=== PATIENT | male | born 1990 | race Two or more races ===

== ENCOUNTER 2017-09-23 15:19 | Inpatient (IN) | payer MEDICAID, OTHER ==
[~2017-09-23] VITALS: Ht 170.2 cm; Wt 59.4 kg
[2017-09-23] MEDS ORDERED: normal saline 1000ML IV soln IVB ONE (15:50)
[2017-09-23] MEDS ORDERED: ondansetron/PF 4mg/2ml inj IV ONE (16:20)
[2017-09-23] MEDS ORDERED: normal saline 1000ML IV soln IV ONE (16:20)
[2017-09-23 16:21] LABS: BASOPHILS % (AUTO) 0.3 % (0-1); EOSINOPHILS # (AUTO) 0.2 X10'3 (0-0.9); EOSINOPHILS % (AUTO) 1.8 % (0-6); HEMATOCRIT 43.6 % (42.0-52.0); HEMOGLOBIN 15.6 g/dl (14.0-17.9); LYMPHOCYTES # (AUTO) 0.9 X10'3 (1.1-4.8); LYMPHOCYTES % (AUTO) 7.5 % (21-51); MEAN CORPUSCULAR HEMOGLOBIN 30.8 PG (27.0-31.0); MEAN CORPUSCULAR HGB CONC 35.7 % (33.0-36.5); MEAN CORPUSCULAR VOLUME 86.2 FL (78-98); MEAN PLATELET VOLUME 7.6 FL (7.4-10.4); MONOCYTES # (AUTO) 0.7 X10'3 (0-0.9); NEUTROPHILS # (AUTO) 10.6 X10'3 (1.8-7.7); NEUTROPHILS % (AUTO) 84.4 % (42-75); PLATELET COUNT 241 X10'3 (140-440); RED BLOOD COUNT 5.06 X10'6 (4.70-6.10); RED CELL DISTRIBUTION WIDTH 12.2 % (11.5-14.5); WHITE BLOOD COUNT 12.5 X10'3 (4.5-11.0)
[2017-09-23 16:32] LABS: INR 1.1 INR; PARTIAL THROMBOPLASTIN TIME 26 SECONDS (22-32)
[2017-09-23 16:36] LABS: ALANINE AMINOTRANSFERASE 36 U/L (12-78); ALBUMIN/GLOBULIN RATIO 1.5 (1.1-1.5); ALKALINE PHOSPHATASE 54 IU/L (46-116); ANION GAP 14 (8-16); ASPARTATE AMINO TRANSFERASE 25 U/L (10-37); BLOOD UREA NITROGEN 24 MG/DL (7-18); BUN/CREATININE RATIO 11.4 (5.4-32.0); CALCIUM 9.2 MG/DL (8.5-10.1); CHLORIDE 104 MMOL/L (99-107); ETHANOL < 0.010 GM/DL (0.0-0.010); GLUCOSE 98 MG/DL (70-104); POTASSIUM 4.2 MMOL/L (3.5-5.1); SODIUM 139 MMOL/L (135-145); TOTAL PROTEIN 8.3 G/DL (6.4-8.2); eGFR 38 ML/MIN
[2017-09-23 16:37] LABS: ACETAMINOPHEN < 2.0 UG/ML (10-30)
[2017-09-23] MEDS ORDERED: NO HOME MEDS (17:04)
[2017-09-23 17:25] LABS: CLARITY,URINE Clear (Clear); COLOR,URINE Yellow (Yellow); GLUCOSE, URINE Negative (Neg); KETONES,URINE Trace mg/dl (Neg); LEUKOCYTE ESTERASE ,URINE Negative (Neg); NITRITES, URINE Negative (Neg); OCCULT BLOOD,URINE Trace (Neg); PH,URINE 5.5 (4.8-8.0); PROTEIN,URINE 30 mg/dl (Neg); UROBILINOGEN,URINE 0.2 E.U/dL (0.2-1.0)
[2017-09-23 17:33] LABS: UA COLLECTION TYPE CLN CATCH MIDSTREAM
[2017-09-23 17:34] LABS: BACTERIA,URINE NONE SEEN /HPF (Neg); MUCUS STRANDS NONE SEEN /LPF (Neg); RBC,URINE 0-2 /HPF (0-2); SQUAMOUS EPITHELIAL CELL,UR FEW /LPF (FEW); WBC CLUMPS,URINE FEW /HPF (NEGATIVE)
[2017-09-23 17:37] LABS: URINE AMPHETAMINE SCREEN NEGATIVE (Neg); URINE BARBITUATE SCREEN NEGATIVE (Neg); URINE BENZODIAZEPINES SCREEN NEGATIVE (Neg); URINE CANNABINOID SCREEN NEGATIVE (Neg); URINE COCAINE SCREEN NEGATIVE (Neg); URINE METHADONE SCREEN NEGATIVE (Neg); URINE OPIATE SCREEN NEGATIVE (Neg); URINE PHENCYCLIDINE SCREEN NEGATIVE (Neg)
[2017-09-23] MEDS ORDERED: magnesium 4gm in 100ml NS 100 ML IV PRN (17:40)
[2017-09-23] MEDS ORDERED: magnesium 2GM in 50ml NS 50 ML IV PRN (17:40)
[2017-09-23] MEDS ORDERED: magnesium hydroxide 30ml (MOM) UD suspension PO PRN (17:40)
[2017-09-23] MEDS ORDERED: magnesium Cl slow-release 64mg tablet PO PRN (17:40)
[2017-09-23] MEDS ORDERED: morphine 2 MG/ML inj. syringe IV PRN (17:40)
[2017-09-23] MEDS ORDERED: ondansetron/PF 4mg/2ml inj IV PRN (17:40)
[2017-09-23] MEDS ORDERED: potassium Cl 40MEQ/NS 500ml 500 ML IV PRN ×2 (17:40)
[2017-09-23] MEDS ORDERED: acetaminophen 325mg tablet PO PRN (17:40)
[2017-09-23] MEDS ORDERED: potassium Cl 20 mEq SR tablet PO PRN ×2 (17:40)
[2017-09-23] MEDS ORDERED: bisacodyl 10mg suppository rectal RC PRN (17:40)
[2017-09-23] MEDS: pantoprazole 40 MG vial IV SCH (18:41)
[2017-09-23 18:45] LABS: LIPASE 55 U/L (73-393)
[2017-09-23] MEDS: sodium chloride 0.45% 1,000 ML IV SCH (19:19)
[2017-09-23] MEDS: mag hydrox/Alum hydrox/simeth 30ml oral suspension PO SCH (21:27)
[2017-09-24 01:00] VITALS: BP 104/56
[2017-09-24] MEDS: sodium chloride 0.45% 1,000 ML IV SCH ×2 (03:38→05:29)
[2017-09-24 04:00] VITALS: BP 101/52
[2017-09-24 05:13] LABS: BASOPHILS % (AUTO) 0.3 % (0-1); EOSINOPHILS # (AUTO) 0.2 X10'3 (0-0.9); EOSINOPHILS % (AUTO) 2.2 % (0-6); HEMATOCRIT 38.8 % (42.0-52.0); HEMOGLOBIN 13.6 g/dl (14.0-17.9); LYMPHOCYTES # (AUTO) 2.1 X10'3 (1.1-4.8); LYMPHOCYTES % (AUTO) 24.5 % (21-51); MEAN CORPUSCULAR HEMOGLOBIN 30.5 PG (27.0-31.0); MEAN PLATELET VOLUME 7.8 FL (7.4-10.4); MONOCYTES # (AUTO) 0.8 X10'3 (0-0.9); MONOCYTES % (AUTO) 9.1 % (2-12); NEUTROPHILS # (AUTO) 5.6 X10'3 (1.8-7.7); NEUTROPHILS % (AUTO) 63.9 % (42-75); PLATELET COUNT 198 X10'3 (140-440); RED BLOOD COUNT 4.46 X10'6 (4.70-6.10); RED CELL DISTRIBUTION WIDTH 12.5 % (11.5-14.5); WHITE BLOOD COUNT 8.7 X10'3 (4.5-11.0)
[2017-09-24] MEDS: pantoprazole 40 MG vial IV SCH ×2 (05:29→08:17)
[2017-09-24 05:55] LABS: ALBUMIN 3.7 G/DL (3.4-5.0); ANION GAP 10 (8-16); BLOOD UREA NITROGEN 19 MG/DL (7-18); BUN/CREATININE RATIO 14.6 (5.4-32.0); CALCIUM 8.5 MG/DL (8.5-10.1); CHLORIDE 112 MMOL/L (99-107); GLUCOSE 83 MG/DL (70-104); MAGNESIUM 2.4 MG/DL (1.5-2.4); POTASSIUM 3.8 MMOL/L (3.5-5.1); SODIUM 146 MMOL/L (135-145); TOTAL CARBON DIOXIDE 24.3 MMOL/L (24-32); eGFR 65 ML/MIN
[2017-09-24 08:00] VITALS: BP 109/71
[2017-09-24] MEDS ORDERED: K and/or MAG REPLACEMENT MC SCH (08:00)
[2017-09-24] MEDS: mag hydrox/Alum hydrox/simeth 30ml oral suspension PO SCH (08:17)
[2017-09-24] MEDS ORDERED: PANT-47 PO (10:19)
[2017-09-24 10:45] VITALS: BP 132/70
== END 2017-09-24 11:49 | disposition home or self-care (01) | DRG 812 ==
LOC: ER 15:21 → ED HOLD 17:06 → EDBEDREQTM 23:17 → EDBEDREQ 23:17 → SUR 3N 23:50
PROVIDERS: ADMIT Internal Medicine; ATTEND Internal Medicine
DX: T39.312A Poisoning by propionic acid derivatives, intentional self-harm, initial encounter (principal); N17.9 Acute kidney failure, unspecified; R45.851 Suicidal ideations; N12 Tubulo-interstitial nephritis, not specified as acute or chronic; E86.0 Dehydration; D72.828 Other elevated white blood cell count; R11.2 Nausea with vomiting, unspecified; Y92.89 Other specified places as the place of occurrence of the external cause
CPT/HCPCS: 36415; 71045; 80048; 80053; 80305; 80320; 80329; 81001; 82948; 83690; 83735; 85025; 85610; 85730; 87070; 87088; 93005; 96361; 96374; 99285; C9113; J2405; J7030

== ENCOUNTER 2017-09-24 11:05 | Emergency (ER) | payer MEDICAID, OTHER ==
[~2017-09-24] VITALS: Ht 6126885 cm; Wt 61.3 kg
[~2017-09-24 11:05] MED LIST: NO HOME MEDS; PANT-47 PO
[2017-09-24] MEDS ORDERED: mirtazapine 15mg tablet PO SCH (23:40)
[2017-09-25] MEDS ORDERED: pantoprazole 40mg Tablet.DR PO SCH (07:30)
[2017-09-25] MEDS: Protein Smoothie (high protein) 240ml (8oz) cup PO SCH ×2 (13:20→17:57)
[2017-09-25 18:05] VITALS: BP 114/68
[2017-09-25] MEDS ORDERED: mirtazapine 15mg tablet PO SCH (21:00)
== END 2017-09-25 18:09 ==
LOC: ER 11:06
DX: T39.312A Poisoning by propionic acid derivatives, intentional self-harm, initial encounter (principal); Y92.89 Other specified places as the place of occurrence of the external cause
CPT/HCPCS: 36415; 84443; 99285